=== PATIENT | female | born 1955 | race Caucasian/White ===

== ENCOUNTER → 2017-10-17 | Outpatient (CLI) | payer BC ==
[~2017-10-17] MED LIST: FLU150 PO; MULT1TAB64 PO; PROBIOTIC BLEN1 EACH PO
--- NOTE | 2017-10-20 08:24 | RADIOLOGY IMAGING REPORT ---
FACILITY: PATIENT NAME: NORM CABALLERO : [id number] MR: [id number] V: [id number] EXAM DATE: ORDERING PHYSICIAN: CORTEZ ALONSO TECHNOLOGIST: Damaris Marroquin PROCEDURE:BILATERAL DIGITAL SCREENING MAMMOGRAM WITH CAD ASSISTED INTERPRETATION AND 3D BREAST TOMOSYNTHESIS. COMPARISON:Prior mammograms dated 10/03/16, 10/01/16, 08/28/15, 08/17/14 and 08/06/13. INDICATIONS:SCREENING FINDINGS: Moderately heterogeneous fibroglandular tissue is seen throughout the breasts. The parenchymal pattern has remained stable when allowing for difference in mammographic technique and patient positioning. There is no evidence of malignant appearing mass, malignant appearing calcification or other secondary sign of malignancy in either breast. DIAGNOSTIC CATEGORY 1--NEGATIVE. RECOMMENDATIONS: ROUTINE MAMMOGRAM AND CLINICAL EVALUATION. IMPRESSION: Bi-RADS 1: No significant abnormality is seen. Images were reviewed with R2CAD and 3D breast tomosynthesis. Dictated by: Hillary Rayo M.D. on 10/17/2017 at 13:00 Transcribed by: [email or web address] on 10/17/2017 at 16:02 Approved by: Hillary Rayo M.D. on 10/20/2017 at 8:22 [facility]
== END ==
LOC: MAMO 03:08
PROVIDERS: ATTEND Emergency Medicine
DX: Z12.31 Encounter for screening mammogram for malignant neoplasm of breast (principal)
CPT/HCPCS: 77063; 77067